=== PATIENT | male | born 1980 | race Caucasian/White ===

== ENCOUNTER 2016-09-02 03:49 | Emergency (ER) | payer MEDICAID ==
[~2016-09-02] VITALS: Ht 165.1 cm; Wt 102.0 kg
[2016-09-02 03:55] VITALS: BP 116/86
== END 2016-09-02 06:40 | disposition left against medical advice (07) ==
LOC: ER 06:34
DX: Z53.21 Procedure and treatment not carried out due to patient leaving prior to being seen by health care provider (principal)

== ENCOUNTER 2023-09-26 01:44 | Emergency (ER) | payer MEDICAID ==
[~2023-09-26] VITALS: Ht 165.1 cm; Wt 93.0 kg
[2023-09-26 01:55] VITALS: BP 124/80; PULSE 81; RESP 14; TEMP 97; O2SAT 98
[2023-09-26] MEDS ORDERED: IBUP-2029 MT (04:09)
[2023-09-26] MEDS ORDERED: PROT20 MT (04:09)
== END 2023-09-26 06:18 | disposition home or self-care (01) ==
LOC: ER 01:45
DX: R10.30 Lower abdominal pain, unspecified (principal)
CPT/HCPCS: 99283

== ENCOUNTER 2023-09-26 06:11 | Emergency (ER) | payer MEDICAID ==
[~2023-09-26] VITALS: Ht 167.6 cm; Wt 127.0 kg
[~2023-09-26 06:11] MED LIST: IBUP-2029 MT; PROT20 MT
[2023-09-26 06:22] VITALS: O2SAT 100
[2023-09-26 07:23] LABS: BASOPHILS % 0.4 % (0.0-2.0); EOSINOPHILS % 3.2 % (0.0-5.0); HEMATOCRIT. 40.1 % (42.0-52.0); HEMOGLOBIN. 13.2 g/dL (14.0-18.0); LYMPHOCYTES % 21.4 % (20.0-50.0); MEAN CORPUSCULAR HEMOGLOBIN 27.6 pg (28.0-32.0); MEAN CORPUSCULAR HGB CONC 32.8 g/dL (31.0-37.0); MEAN CORPUSCULAR VOLUME 84.1 fL (80.0-94.0); MEAN PLATELET VOLUME 7.5 fl (7.4-10.4); MONOCYTES % 7.9 % (2.0-8.0); NEUTROPHILS % 67.1 % (40.0-76.0); PLATELET 312 x1000/uL (130-400); RED BLOOD CELL COUNT 4.77 mill/uL (4.7-6.1); RED CELL DISTRIBUTION WIDTH 14.9 % (11.6-14.6); WHITE BLOOD COUNT 8.3 x1000/uL (4.5-11.0)
[2023-09-26 07:25] LABS: CARBON DIOXIDE 26 mEq/L (21-32); CHLORIDE 109 mEq/L (98-107); POTASSIUM 3.7 mEq/L (3.5-5.1); SODIUM 139 mEq/L (136-145)
[2023-09-26 07:26] LABS: CALCIUM 8.5 mg/dL (8.7-10.4)
[2023-09-26 07:31] LABS: CREATININE 0.8 mg/dL (0.6-1.3); GLUCOSE 106 mg/dL (70-105); UREA NITROGEN BLOOD 12 mg/dL (9-23)
[2023-09-26 07:33] LABS: ACETAMINOPHEN < 2 ug/mL (10-30)
[2023-09-26 08:09] LABS: ETHANOL BLOOD < 10 mg/dL (<10)
[2023-09-26 10:12] LABS: CLARITY URINE CLEAR (CLEAR); COLOR URINE YELLOW (YELLOW); GLUCOSE URINE NEGATIVE (NEGATIVE); KETONES URINE NEGATIVE (NEGATIVE); LEUKOCYTE ESTERASE URINE NEGATIVE (NEGATIVE); NITRITE URINE NEGATIVE (NEGATIVE); OCCULT BLOOD URINE NEGATIVE (NEGATIVE); PH URINE 6.5 (4.5-8.0); PROTEIN URINE NEGATIVE (NEGATIVE); SPECIFIC GRAVITY URINE 1.011 (1.005-1.030)
[2023-09-26 10:31] LABS: *AMPHETAMINES SCREEN URINE PRESUMPTIVE POSITIVE (NEGATIVE); *BARBITURATES SCREEN URINE NEGATIVE (NEGATIVE); *BENZODIAZEPINES SCREEN URINE NEGATIVE (NEGATIVE); *COCAINE SCREEN URINE NEGATIVE (NEGATIVE); CANNABINOID URINE SCREEN NEGATIVE (NEGATIVE); METHADONE URINE SCREEN NEGATIVE (NEGATIVE); OPIATES URINE SCREEN NEGATIVE (NEGATIVE); PHENCYCLIDINE URINE SCREEN NEGATIVE (NEGATIVE)
[2023-09-26 10:32] LABS: ECSTASY MDMA SCREEN URINE NEGATIVE (NEGATIVE)
[2023-09-26] MEDS: QUETIAPINE FUMARATE 50MG TABLET PO SCH (21:00)
[2023-09-28 14:58] VITALS: BP 122/87; PULSE 90; RESP 16; TEMP 98.1
== END 2023-09-28 13:45 | disposition short-term general hospital (02) ==
LOC: ER 06:11
DX: R45.851 Suicidal ideations (principal); Z20.822 Contact with and (suspected) exposure to COVID-19; Z91.148 Patient's other noncompliance with medication regimen for other reason
CPT/HCPCS: 80305; 80048; 81003; 80307; 80329; 80320; 85025; 36415; 99285; 87426; Z7610 ×3; G0480